=== PATIENT | female | born 1945 | race Caucasian/White ===

== ENCOUNTER → 2017-05-06 10:03 | Outpatient (CLI) | payer MEDICARE, OTHER, SELFPAY ==
--- NOTE | 2017-05-06 10:09 | HPBI_ITS ---
MAMMOGRAPHY - BILATERAL SCREENING REASON FOR EXAM: Female, 71 years old. Routine annual screening examination. PERTINENT HISTORY: Non-contributory. History of bilateral stereotactic breast biopsies. TECHNIQUE: Digital bilateral breast noé (3D mammographic acquisition) in the CC and MLO projections. 2-D mediolateral oblique (MLO) and craniocaudad (CC) views of both breasts were obtained. CAD: Full Field Digital Mammography with Computer Added Detection was performed. COMPARISON: Comparison is made with prior outside examination dated December 07, 2015. FINDINGS: Breast Composition: There are scattered areas of fibroglandular density. There are no dominant masses or suspicious calcifications. Stable appearance of the several small nodular densities in the right breast. These may represent cysts. Correlation with ultrasound is recommended. No other significant abnormalities are identified. There has been no significant change since the prior study. HPBI/SCREENING MAMM (CAD), BILAT IMPRESSION: Stable bilateral screening mammogram. Correlation with ultrasound of the right breast is recommended for further evaluation. ASSESSMENT CATEGORY: BIRADS Category 0: Incomplete. Need additional imaging evaluation. A letter regarding these results will be sent to the patient by the facility within 30 days. Approximately 10% of breast cancers are not detected by mammography. A normal mammogram should not delay biopsy of a clinically suspicious abnormality. [id number] Electronically Signed: Everett Ingram MD at 12:41 EST Tel [phone], Service support ,
--- NOTE | 2017-05-06 10:16 | HPBD_ITS ---
STUDY: DUAL ENERGY X-RAY ABSORPTIOMETRY / DXA REASON FOR EXAM: Female, 71 years old. The patient is postmenopausal. Loss of height. TECHNIQUE: Bone Mineral Density (BMD) measurements of both forearms were obtained. The patient is status post bilateral hip replacement and lumbar fusion. COMPARISON: None. FINDINGS: Right Forearm: g/cm2 (1.025) / T-score (1.5) / Z-score (3.5) Left Forearm: g/cm2 (0.969) / T-score (0.9) / Z-score (2.9) HPBD/Dexa Bone Density/Append Skel IMPRESSION: The patient is considered normal as outlined below according to World Tip Organization (WHO) criteria with a low fracture risk. Reference Information: The T-score is the number of standard deviations above or below the standard which is normal for young adults at their peak bone mineral density. The World Health Organization (WHO) interprets the T-scores as follows: Above -1 Normal bone density Between -1 and -2.5 Osteopenia Equal to / or below -2.5 Osteoporosis As a practical clinical guideline, osteopenia may be graded as follows: Mild -1 through -1.5 Moderate -1.6 through -2.0 Severe -2.1 through -2.4 The Z-score is the number of standard deviations above or below age-matched controls. A Z-score of less than -1.5 would be considered abnormal. References: 1. NIH Osteoporosis and Related Bone Diseases http://www.osteo.org 2. International Society for Clinical Densitometry http://www.iscd.org 3. National Osteoporosis Foundation http://www.nof.org Electronically Signed: Everett Ingram MD at 12:40 EST Tel [phone], Service support ,
== END ==
PROVIDERS: Family Provider Internal Medicine; PCP Internal Medicine; Visit Provider Internal Medicine
DX: Z12.31 Encounter for screening mammogram for malignant neoplasm of breast (principal); Z78.0 Asymptomatic menopausal state
CPT/HCPCS: 77063; 77067; 77080; 77081

== ENCOUNTER → 2017-05-12 12:20 | Outpatient (CLI) | payer MEDICARE, OTHER, SELFPAY ==
--- NOTE | 2017-05-12 12:24 | US_ITS ---
STUDY: ULTRASOUND BREAST - RIGHT REASON FOR EXAM: Female, 71 years old. Abnormal screening mammogram. TECHNIQUE: Axial and longitudinal images of the RIGHT breast were performed with a high resolution ultrasound transducer. COMPARISON: Comparison is made with prior mammogram dated May 06, 2017. FINDINGS: RIGHT Breast: The entire right breast was examined. Multiple cysts are seen. The largest measures 8 mm x 6 mm x 5 mm. This is at the 1:00 position in the breast at 5 cm from the nipple. US/Breast Limited Unilateral IMPRESSION: Multiple small cysts are seen in the right breast. Routine mammographic follow-up is recommended. ASSESSMENT CATEGORY: BIRADS Category 2: Benign. A letter regarding these results will be sent to the patient by the facility within 30 days. Electronically Signed: Everett Ingram MD at 15:22 EST Tel [phone], Service support ,
== END ==
PROVIDERS: Family Provider Internal Medicine; PCP Internal Medicine; Visit Provider Internal Medicine
DX: R92.8 Other abnormal and inconclusive findings on diagnostic imaging of breast (principal)
CPT/HCPCS: 76642

== ENCOUNTER → 2018-06-08 09:17 | Outpatient (CLI) | payer MEDICARE, OTHER, SELFPAY ==
--- NOTE | 2018-06-08 09:33 | CDU_ITS ---
Reason For Study: Bruit Rt. Velocities/BP Lt. Velocities/BP Prox CCA 112/21.1 cm/sec. Prox CCA 132/36.1 cm/sec. Mid CCA 103/19.3 cm/sec. Mid CCA 108/33.8 cm/sec. Dist CCA 103/24.6 cm/sec. Dist CCA 96.6/30.6 cm/sec. Prox ICA 97.3/23.5 cm/sec. Prox ICA 75/20.5 cm/sec. Mid ICA 70.9/27 cm/sec. Mid ICA 89.1/27.6 cm/sec. Dist ICA 72.1/22.9 cm/sec. Dist ICA 82.1/32.2 cm/sec. Rt. ICA/CCA = 0.94. Lt. ICA/CCA = 0.83. Prox ECA 141/18.9 cm/sec. Prox ECA 93.5/14.1 cm/sec. Rt. Vert. 44/15.7 cm/sec. Lt. Vert. 46.8/14.1 cm/sec. Right Extracranial There is intimal thickening but no significant atherosclerotic plaque noted in the right common carotid artery. There is heterogeneous, irregular atherosclerotic plaque noted in the right internal carotid artery. There is heterogeneous, irregular atherosclerotic plaque noted in the right external carotid artery. Antegrade flow is noted in the right vertebral artery. Left Extracranial There is intimal thickening but no significant atherosclerotic plaque noted in the left common carotid artery. There is intimal thickening but no significant atherosclerotic plaque noted in the left internal carotid artery. There is intimal thickening but no significant atherosclerotic plaque noted in the left external carotid artery. Antegrade flow is noted in the left vertebral artery. Procedure Carotid Duplex 46001. Exam performed in department. Interpretation Summary Mild (<50%) stenosis right extracranial internal carotid. Mild (<50%) stenosis left extracranial internal carotid. Flow within the vertebral arteries is antegrade bilaterally. Ordering Physician: Debora Fernando Referring Physician: Debora Fernando Performed By: Roxane Knutson RVT, RDCS and Student
== END ==
PROVIDERS: Family Provider Internal Medicine; PCP Internal Medicine; Referring Provider Internal Medicine; Visit Provider Internal Medicine
DX: R09.89 Other specified symptoms and signs involving the circulatory and respiratory systems (principal)
CPT/HCPCS: 93880

== ENCOUNTER → 2018-07-06 09:47 | Outpatient (CLI) | payer MEDICARE, OTHER, SELFPAY ==
[2017-09-19 10:11] VITALS: BMI 38.8
--- NOTE | 2018-07-06 09:49 | BI_ITS ---
MAMMOGRAPHY - BILATERAL SCREENING REASON FOR EXAM: Female, 72 years old. Routine annual screening examination. PERTINENT HISTORY: History of multiple cysts. Remote bilateral stereotactic biopsies. TECHNIQUE: Digital bilateral breast noé (3D mammographic acquisition) in the CC and MLO projections. 2-D mediolateral oblique (MLO) and craniocaudad (CC) views of both breasts were obtained. CAD: Full Field Digital Mammography with Computer Added Detection was performed. COMPARISON: Comparison is made with prior study dated May 06, 2017. FINDINGS: Breast Composition: There are scattered areas of fibroglandular density. Once again, there are multiple small nodular densities scattered throughout the right breast. These have been demonstrated to be cysts on prior ultrasound. Several small well-defined nodular densities are also seen in the left breast. These most likely represent small cysts as well. No other significant abnormalities are identified. There has been no significant change since the prior study. BI/SCREENING MAMM (CAD), BILAT IMPRESSION: Stable bilateral screening mammogram. Yearly follow-up mammogram recommended. (A) ASSESSMENT CATEGORY: BIRADS Category 2: Benign. A letter regarding these results will be sent to the patient by the facility within 30 days. Approximately 10% of breast cancers are not detected by mammography. A normal mammogram should not delay biopsy of a clinically suspicious abnormality. [id number] Electronically Signed: Everett Ingram, at 11:14 EDT , Service support ,
== END ==
PROVIDERS: Family Provider Internal Medicine; PCP Internal Medicine; Referring Provider Internal Medicine; Visit Provider Internal Medicine
DX: Z12.31 Encounter for screening mammogram for malignant neoplasm of breast (principal)
CPT/HCPCS: 77063; 77067

== ENCOUNTER → 2019-12-08 06:17 | Outpatient (CLI) | payer MEDICARE, OTHER, SELFPAY ==
[2019-11-23 11:29] VITALS: BMI 48.7
--- NOTE | 2019-12-08 06:18 | ECHOD_ITS ---
Reason For Study: MURMUR Procedure This was a 2D Doppler, Color Flow transthoracic echocardiogram. Exam performed in department. Left Ventricle Normal LV size. Left ventricular systolic function is normal. The estimated ejection fraction is 60 %. Stage 1 diastolic dysfunction. No regional wall motion abnormalities noted. Right Ventricle Normal RV size. Normal systolic function. Atria Normal left atrium. Mitral Valve There is mild to moderate mitral annular calcification. Tricuspid Valve Normal tricuspid valve. Aortic Valve Trisinus/trileaflet aortic valve. Mild focal aortic valve calcification. Pulmonic Valve Normal pulmonic valve. Great Vessels Normal aortic root. The pulmonary artery is normal size. Normal inferior vena cava. Pericardium/Pleural No pericardial effusion. MMode/2D Measurements & Calculations LVIDd: 4.3 cm IVSd: 1.0 cm LVOT diam: 2.0 cm LVIDs: 2.4 cm LVPWd: 1.1 cm LVOT area: 3.0 cm2 RVDd: 2.9 cm FS: 42.7 % Ao root diam: 3.1 cm LAV(MOD-bp): 48.7 ml LVAd ap4: 22.1 cm2 LAV(MOD-bp) Indexed: 22.3 ml/m2 EDV(MOD-sp4): 56.9 ml LAV(MOD-sp2): 54.1 ml EDV(sp4-el): 58.1 ml LAV(MOD-sp4): 42.6 ml LVAs ap4: 11.1 cm2 ESV(MOD-sp4): 18.7 ml ESV(sp4-el): 17.4 ml EF(MOD-sp4): 67.1 % EF(sp4-el): 70.0 % SV(MOD-sp4): 38.2 ml SV(sp4-el): 40.7 ml LA A4 area: 17.1 cm2 LA dimension(2D): 4.1 cm RA A4 area: 12.3 cm2 Time Measurements MV dec time: 0.29 sec Doppler Measurements & Calculations MV E max jose martin: 78.2 cm/sec Lat Peak E' Jose Martin: 5.2 cm/sec Med Peak E' Jose Martin: 8.3 cm/sec MV A max jose martin: 108.8 cm/sec E/E' lat: 15.1 E/E' med: 9.4 MV E/A: 0.72 Ao V2 max: 257.5 cm/sec LV V1 max: 112.2 cm/sec SV(LVOT): 82.9 ml Ao max P.5 mmHg LV V1 max P.0 mmHg Ao V2 mean: 181.0 cm/sec LV V1 mean P.3 mmHg Ao mean P.5 mmHg LV V1 mean: 69.8 cm/sec Ao V2 VTI: 53.2 cm LV V1 VTI: 27.5 cm MADAN(I,D): 1.6 cm2 MADAN(V,D): 1.3 cm2 PA V2 max: 95.1 cm/sec Interpretation Summary Normal LV size. Left ventricular systolic function is normal. The estimated ejection fraction is 60 %. Stage 1 diastolic dysfunction. Ordering Physician: Ulises Rees Referring Physician: ROBERT HUDSON Performed By: Caty Fernandes RDCS
== END ==
PROVIDERS: PCP Internal Medicine; Referring Provider Internal Medicine Cardiovascular Disease; Visit Provider Internal Medicine Cardiovascular Disease
DX: I25.10 Atherosclerotic heart disease of native coronary artery without angina pectoris (principal); R01.1 Cardiac murmur, unspecified
CPT/HCPCS: 93306

== ENCOUNTER → 2020-07-11 10:21 | Outpatient (CLI) | payer MEDICARE, OTHER, SELFPAY ==
[2019-11-23 11:29] VITALS: BMI 48.7
--- NOTE | 2020-07-11 10:27 | BI_ITS ---
MAMMOGRAPHY - BILATERAL SCREENING 3-D TOMOSYNTHESIS REASON FOR EXAM: Female, 74 years old. SCREENING PERTINENT HISTORY: No significant family history. History of cysts and previous biopsies TECHNIQUE: 2-D mammograms and 3-D Tomosynthesis of the breast (s) were performed. CAD was performed. COMPARISON: 2019 FINDINGS: The breast composition is composed of scattered fibroglandular density. Scattered benign calcifications are seen. No dense spiculated masses or suspicious microcalcifications are identified. No architectural distortion is identified. There is no skin thickening or retraction. Stable well-defined subcentimeter nodules in both breasts. There has been no significant change since the prior study. BI/SCRN MAMM (CAD)W/WILLIE BILAT IMPRESSION: No mammographic signs of malignancy. Routine yearly mammograms recommended. ASSESSMENT CATEGORY: BIRADS Category 2: Benign. A letter regarding these results will be sent to the patient by the facility within 30 days. FOLLOW UP RECOMMENDATION: Yearly follow up mammogram recommended. (A) Approximately 10% of breast cancers are not detected by mammography. A normal mammogram should not delay biopsy of a clinically suspicious abnormality. Electronically Signed: Shan Mayfield MD at 11:24 EDT , Service support ,
--- NOTE | 2020-07-11 10:53 | BD_ITS ---
STUDY: DUAL ENERGY X-RAY ABSORPTIOMETRY / DXA REASON FOR EXAM: Female, 74 years old. [id number]. Patient is postmenopausal. Loss of height. TECHNIQUE: Bone Mineral Density (BMD) measurements of both forearms were obtained. COMPARISON: Comparison is made with prior study dated 05/06/2017. FINDINGS: Right Forearm: g/cm2 (0.988) / T-score (1.1) / Z-score (3.4) Left Forearm: g/cm2 (0.946) / T-score (0.7) / Z-score (2.9) BD/Dexa Bone Density/Append Skel IMPRESSION: The patient is considered normal as outlined below according to World Tip Organization (WHO) criteria with a low fracture risk. There has been worsening of bone density since the previous examination. Reference Information: The T-score is the number of standard deviations above or below the standard which is normal for young adults at their peak bone mineral density. The World Health Organization (WHO) interprets the T-scores as follows: Above -1 Normal bone density Between -1 and -2.5 Osteopenia Equal to / or below -2.5 Osteoporosis As a practical clinical guideline, osteopenia may be graded as follows: Mild -1 through -1.5 Moderate -1.6 through -2.0 Severe -2.1 through -2.4 The Z-score is the number of standard deviations above or below age-matched controls. A Z-score of less than -1.5 would be considered abnormal. References: 1. NIH Osteoporosis and Related Bone Diseases www osteo.org 2. International Society for Clinical Densitometry www iscd.org 3. National Osteoporosis Foundation www nof.org Electronically Signed: Everett Ingram MD at 12:31 EDT , Service support ,
== END ==
PROVIDERS: PCP Internal Medicine; Referring Provider Internal Medicine; Visit Provider Internal Medicine
DX: Z78.0 Asymptomatic menopausal state (principal); Z12.31 Encounter for screening mammogram for malignant neoplasm of breast
CPT/HCPCS: 77063; 77067; 77081

== ENCOUNTER 2021-07-18 09:49 | Outpatient (CLI) | payer MEDICARE, OTHER, SELFPAY ==
--- NOTE | 2021-07-18 09:52 | ART_ITS ---
Reason For Study: CLAUDICATION Procedure A bilateral lower extremity continuous wave Doppler with analog waveform analysis,segmental pressures,and ankle brachial indexes without exercise. Left Segmental Pressures Left brachial= 168mmHg. Left calf = >255mmHg. Left posterior tibial artery = >255mmHg. Left dorsalis pedis artery = 150mmHg. Left digit = 110 mmHg. The left posterior tibial artery waveforms are triphasic. The left dorsalis pedis waveforms are triphasic. Right Segmental Pressures Right brachial= 164mmHg. Right posterior tibial artery = 185mmHg. Right dorsalis pedis artery = >255mmHg. Right digit = 134 mmHg. The right posterior tibial artery waveforms are triphasic. The right dorsalis pedis waveforms are triphasic. Indices The right resting ankle brachial index is 1.10. The right ankle brachial index by the posterior tibial artery is 1.10. The right ankle brachial index by the dorsalis pedis is -NC-. The right digital-brachial index is 0.80. The left resting ankle brachial index is 0.89. The left ankle brachial index by the posterior tibial artery is -NC-. The left ankle brachial index by the dorsalis pedis is 0.89. The left digital-brachial index is 0.65. VL/Lower Ext Art Exam w/o Exercis Interpretation Summary Normal right lower extremity PT ankle-brachial index of 1.1 with noncalculable right DP index due to noncompressibility. Normal triphasic Doppler waveforms for the right posterior tibial and dorsalis pedis Right digital brachial index is normal but the volume pulse recordings are carlitos edly diminished consistent with small vessel disease Noncompressible left posterior tibialis making the ankle-brachial index not donta culable Moderately severe occlusive disease based upon the left DP index of 0.89. It is of note that the left posterior tibial and dorsalis pedis Doppler waveforms are both triphasic s uggesting a more mild amount of disease. The left digital brachial index is abnormal though at 0.65 suggesting small ves annie disease Ordering Physician: Efe Westfall Referring Physician: Debora Fernando Performed By: Ambreen Swain RVT, [facility]
== END 2021-07-18 23:59 | disposition home or self-care (01) ==
LOC: CVS 09:50
PROVIDERS: PCP Internal Medicine; Visit Provider Surgery
DX: R09.89 Other specified symptoms and signs involving the circulatory and respiratory systems (principal)
CPT/HCPCS: 93923

== ENCOUNTER 2021-07-27 13:00 | Outpatient (RCR) | payer MEDICARE, OTHER, SELFPAY ==
--- NOTE | 2021-07-04 14:16 | HP.PTEVAL_ITS ---
Patient's Visit Information DION NEGRETE is a 75 year old F referred to Physical Therapy by Dr. Debora Hudson DO with a diagnosis of RIGHT LE SCIATICA. Date of Evaluation: 07/04/21 Physical Therapist: Berenice Gama, PT, Cert MDT - Visit Plan Frequency: 2-3x /Week Duration: 4-6 Weeks Plan: GAIT TRAINING WITH WEIGHT APPROPRIATE WALKER AND/OR IN PARALLEL BARS FOR SAFETY. USE GAIT BELT. POSTURE CORRECTION/STRENGTHENING, INSTRUCTION IN APPROPRIATE BODY MECHANICS AND ACTIVITY MODIFICATIONS. DLS STARTING WITH A NEUTRAL SPINE PROGRESSING ROM TOLERATED. VICKIE LE ROM, STRETCHING AND STRENGTHENING. HEP INSTRUCTION. - Subjective Work/Leisure: RETIRED. Present symptoms: LOW BACK PAIN R > L. SHARP BURNING PAIN ALL THE WAY DOWN RIGHT LEG TO TOES. DENIES LLE SXS'. Present since: CHRONIC BUT Apr FELL ON RIGHT LEG AND ABOUT 2 WEEKS AFTER THE FALL THE PAIN STARTED VERY SERIOUSLY AGAIN. PRIOR TO THAT THE PAIN WAS MORE MANAGEABLE AND WOULD COME AND GO. Pain Scale: WORST 10/10, LEAST 1/10. Currently: 04/16. Commenced as a result of: FALL APR 2021 IN BEDROOM - FELL ONTO AN OAK STEP. Symptoms at onset: L LEG FROM KNEE DOWN HURT AND SWELLED UP. Worse: GETTING DRESSED, MOVING. Better: AM, SITTING. Disturbed sleep: NO. Previous history/Previous treatment: BACK SURGERY 2017 AT [facility]. PATIENT REPORTS SHE HAD A WHOLE YEAR AFTER THE BACK SURGERY WITHOUT PAIN BUT THEN THE PAIN STARTED RETURNING. ABHIJIT'S BEFORE THE BACK SURGERY. PT FOR BACK AFTER SURGERY BUT NONE SINCE. Treatment this episode: NO BACK TREATMENT PER PATIENT REPORT SINCE FALL IN APRIL. Coughing/sneezing/straining: NEGATIVE. Gait: WALKING WITH WALKER AND ROLLATOR IN HOME. DISTANCE LIMITED BY BACK AND R LEG PAIN. 3 STEPS WITH ONE HR INTO AND OUT OF HOUSE. PATIENT DOES STEPS WITH HR ON ONE SIDE AND HELP OF ON THE OTHER. HAS W/C AND USES IT FOR ANYTHING OTHER THAN SHORT DISTANCES. GETTING AROUND WITH A CANE BEFORE THE FALL. LIVES ON ONE LEVEL IN HOME. Difficulty initiating urination: PATIENT DENIES BOWEL INCONTINENCE. HAS BLADDER INCONTINENCE BUT NOT NEW SINCE THE FALL. Accidents: NO. Unexplained weight loss: NO. Imaging: NONE RECENT OF LOW BACK. REPORTS SHE DID HAVE RIGHT LE X-RAYS AFTER THE FALL AND THEY TOLD HER EVERYTHING IS OK. PMH/Recent major surgery: HEART DZ, HTN, AORTIC VALVE STENOSIS, TYPE II DM, L SHLD REPLACEMENT 2017, CORONARY ARTERY STENT PLACEMENT. R THR 2017. RIGHT FOOT ORIF. OTHER: RECENT EXAM BY DR. STATON FOR RIGHT NAIR HEMATOMA. HAS BEEN SITTING FOR ALMOST 3 MONTHS WITH LEG UP BECAUSE IT SWELLED SO MUCH. STATES THE SWELLING IS PRETTY MUCH GONE NOW. REPORTS DR. HUDSON GAVE HER MUSCLE RELAXER LAST FRIDAY AND FRIDAY MORNING HER MUSCLES FELT LIKE NOODLES AND COULD HARDLY STAND AT ALL. STATES SHE IS STILL FEELING WEAKER THAN NORMAL AND SHE RELATES IT TO THE MUSCLE RELAXERS WHICH SHE HAS STOPPED TAKING FRIDAY. OTHER: PATIENT REPORTS THAT SOMETIME AFTER THE FALL HER FINGER TIPS STARTED GOING NUMB AND THIS PT INSTRUCTED PATIENT TO NOTIFY DR. HUDSON. - Objective Sitting/Standing Posture: POOR. REDUCED LUMBAR LORDOSIS. FH. RSH'S. Active Correction of posture: WORSE AND ONLY ABLE TO PARTIALLY CORRECT. Other Observations: THIS PATIENT WAS BROUGHT BACK TO PT IN HER OWN W/C BY HER . PATIENT IS UE DEPENDENT TO TRANSFER FROM SIT TO STAND AT WALKER FROM W/C AND UE DEPENDENT ON WALKER TO BALANCE IN STANDING AND TO TAKE A FEW STEPS. INCREASED TRUNK FLEXION IN STANDING. Motor deficit: L LE: 5/5 WITH MMT'ING EXCEPT HIP 4/5. RIGHT LE TESTING IS PAIN LIMITED AND GROSSLY: HIP 3+/5, KNEE EXT 4-/5, KNEE FLEX 4/5, ANKLE 4/5. Sensory deficit: VICKIE LE LIGHT TOUCH SENSATION IS GROSSLY INTACT AND SYMMETRICAL. ROM deficit: TIGHT VICKIE GASTROC SOLEUS COMPLEX'S RIGHT > LEFT. VICKIE HIP FLEXOR AND HS TIGHTNESS BUT ABLE TO FULL Y EXTEND VICKIE KNEES IN SITTING. Dural Signs: NEGATIVE VICKIE LE'S. Lumbar mvmt loss: flex - MIN TO MOD. ext - MARIAM. R SG - MARIAM. L SG - MARIAM. PATIENT DENIES INCREASED PAIN WITH LUMBAR FLEXION TESTING BUT INCREASED PAIN INTO VICKIE SG AND ESPECIALLY EXTENSION. ONLY ABLE TO PARTIALLY CORRECT POSTURE. Core strength: POOR. TREATMENT: THER ACT - HOME INSTRUCTIONS FOR USE OF LUMBAR SUPPORT IN SITTING, WALKING PROGRAM IN HOME AND SEATED EX'S 2X10, 3 TIMES A DAY INCLUDING HEEL/TOE RAISES, LAQ'S AND HIP FLEXION. 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 - Balance/Special Test Scores Oswestry Low Back Score: 31 30 Second Chair Rise Test Seconds: 1 - Goals Goal 1:: DECREASE C/O LOW BACK AND RIGHT LE PAIN. Goal Time Frame: 4-6 Weeks Goal 2:: IMPROVE PERSONAL CARE, LIFTING, WALKING, STANDING, SOCIAL LIFE, TRAVEL AND HOMEMAKING FUNCTION/OSWESTRY SCORE Goal Time Frame: 6-8 Weeks Goal 3:: PATIENT WILL AMBULATE 75 FEET WITH WW WITH SUPERVISION X 1 TO IMPROVE ACTIVITY TOLERANCE Goal Time Frame: 6-8 Weeks Goal 4:: PATIENT WILL COMPLETE 6 STANDS IN 30 SECS TO DEMONSTRATE IMPROVED FUNCTIONAL STRENGTH Goal Time Frame: 6-8 Weeks Goal 5:: PATIENT WILL COMPLETE TUG IN < 30 SECS WITH LEAST ASSISTIVE DEVICE TO DEMONSTRATE IMPROVED GAIT STABILITY Goal Time Frame: 6-8 Weeks - Anticipated Interventions Patient/Client Instruction: Educate patient on: Condition, Plan of Care, Risk Factors, Benefits of Fitness Program For the Purpose of:: To improve self management Therapeutic Exercise to Include: Strength training, Body mechanics, Postural training, Flexibilty training, Gait and locomotor training, Neuromotor development, Dynamic Lumbar Stabilization For the Purpose of:: To decrease pain, To improve muscle performance and motor function, To increase tolerance to activity/condition/position, To improve ability of physical actions for home/community/work/leisure, To improve gait and locomotor functions Thank you for the opportunity to evaluate your patient. For Medicare and Medicare HMO plans, please review the plan of care and approve it. It will need to be FAXED BACK to us at [phone] for Medicare purposes. For Medicare only, by signing this I certify the plan of care. Please let me know if there are questions or concerns regarding this plan of care. Physician Signature: Date:
--- NOTE | 2021-07-27 15:34 | HP.PTREVAL_ITS ---
Dr. Debora Hudson, DO, It has been my pleasure to treat DION NEGRETE over the last 8 visits for RIGHT LE SCIATICA. Please see the progress note below for an update on the physical therapy plan of care! Subjective: PATIENT REPORTS HER BACK AND LEG PAIN IS NO BETTER AND NO WORSE SINCE STARTING PT. REPORTS HER STANDING AND WALKING IS NOT GETTING BETTER AND HER PAIN IS NOT GETTING BETTER. Friday07/23/21 PATIENT REPORTS SHE WENT TO THE ED IN [place] BECAUSE HER FINGER TIPS AND RIGHT UE WERE GETTING NUMB. SHE REPORTS THEY X-RAY'D HER NECK AND PRESCRIBED METHYL PREDNISOLONE 4 MG AND NAPROXEN 500 MG. THE ED ALSO REFERRED HER TO [facility] FOR A CONSULT ON HER NECK. SHE WAS DX'D WITH CERVICAL RADICULOPATHY. SHE REPORTS THEY TOLD HER SHE DID NOT HAVE ANY FX'S. Friday07/24/21 PATIENT REPORTS SHE WAS GETTING BACK INTO BED EARLY IN THE MORNING AND HER FOOT SLIPPED OFF THE STEP AND SHE FELL TO THE FLOOR. SHE REPORTS HER GRANDSON PICKED HER UP AND SHE WENT BACK TO BED. SHE REPORTS SHE DIDN'T HURT HERSELF THAT TIME OTHER THAN SOME BRUISES. SHE STARTED THE ED PRESCRIBED MEDICATIONS Friday. PATIENT REPORTS SHE POPPED HER LEFT THUMB OUT TRYING TO GET OUT OF THE CHAIR THIS MORNING. Objective/Function: PATIENT WAS SEEN TODAY FOR RE-ASSESSMENT OF PROGRESS TOWARD THE SET PT GOALS AND THE NEED FOR FURTHER PHYSICAL THERAPY VS READINESS FOR DISCHARGE. SHE ARRIVED TO PT IN A W/C AND WAS WHEELED BACK TO TREATMENT ROOM BY HER . UPON EXAM, THERE ARE NO SIGNIFICANT CHANGES SINCE INITIAL EVAL EXCEPT PATIENT UNABLE TO DEMO TRANSFERS AND GAIT. SHE AND HER DO HOWEVER REPORT SHE WALKED ABOUT 20 FEET WITH THE WALKER TO GET TO THE CAR TO GET HERE TODAY. PATIENT STRUGGLED A BIT TRYING TO RISE FROM SITTING FROM THE W/C TODAY AND THEN TOLD ME ABOUT HER THUMB. I INSTRUCTED HER TO STOP AND REFERRED HER BACK TO DR. HUDSON FOR FOLLOW UP ON HER SCIATICA DX AND HER NEW C/O'S OF L THUMB PAIN AND UE SX'S. HER LEFT HAND IS VERY BRUISED. SHE PLANS TO STOP AT [facility] ON HER WAY OUT TODAY TO SCHEDULE FOLLOW UP WITH DR. HUDSON. Plan Plan: HOLD PT PENDING PHYSICIAN RE-ASSESSMENT. PATIENT AND AGREEABLE. Balance/Gait/Functional tests - Balance/Special Test Scores Oswestry Low Back Score: 32 30 Second Chair Rise Test Seconds: 1 Goals Goal 1:: DECREASE C/O LOW BACK AND RIGHT LE PAIN. Goal Time Frame: 4-6 Weeks Goal Progress: Not Progressing Goal 2:: IMPROVE PERSONAL CARE, LIFTING, WALKING, STANDING, SOCIAL LIFE, TRAVEL AND HOMEMAKING FUNCTION/OSWESTRY SCORE Goal Time Frame: 6-8 Weeks Goal Progress: Not Progressing Goal 3:: PATIENT WILL AMBULATE 75 FEET WITH [facility] WITH SUPERVISION X 1 TO IMPROVE ACTIVITY TOLERANCE Goal Time Frame: 6-8 Weeks Goal Progress: Not Progressing Goal 4:: PATIENT WILL COMPLETE 6 STANDS IN 30 SECS TO DEMONSTRATE IMPROVED FUNCTIONAL STRENGTH Goal Time Frame: 6-8 Weeks Goal Progress: Not Progressing Goal 5:: PATIENT WILL COMPLETE TUG IN < 30 SECS WITH LEAST ASSISTIVE DEVICE TO DEMONSTRATE IMPROVED GAIT STABILITY Goal Time Frame: 6-8 Weeks Goal Progress: Not Progressing Anticipated Interventions Patient/Client Instruction: Educate patient on: Condition, Plan of Care, Risk Factors, Benefits of Fitness Program For the Purpose of:: To improve self management Therapeutic Exercise to Include: Strength training, Body mechanics, Postural t raining, Flexibilty training, Gait and locomotor training, Neuromotor development, Dynamic Lumbar Stabilization For the Purpose of:: To decrease pain, To improve muscle performance and motor function, To increase tolerance to activity/condition/position, To improve ability of physical actions for home/community/work/leisure, To improve gait and locomotor functions Please do not hesitate to contact me at [phone] by phone or if you have questions or concerns regarding this new plan of care! Sincerely, Berenice Gama, PT, Cert MDT
== END 2021-07-27 19:00 | disposition home or self-care (01) ==
LOC: PT 13:00
PROVIDERS: PCP Internal Medicine; Referring Provider Internal Medicine; Visit Provider Internal Medicine
DX: M54.31 Sciatica, right side (principal)
CPT/HCPCS: 97110; 97162; 97164; 97530

== ENCOUNTER → 2021-08-23 | Outpatient (CLI) | payer MEDICARE, OTHER, SELFPAY ==
--- NOTE | 2021-08-23 13:00 | MRI_ITS ---
EXAM: MR LUMBAR SPINE WITHOUT INTRAVENOUS CONTRAST CLINICAL INDICATION: LBP TECHNIQUE: Multiplanar and multisequence MR images of the lumbar spine without intravenous contrast. This report was created using [employer] report Mozy technology. COMPARISON: None. FINDINGS: VERTEBRAE: Prominent diffuse spondylosis. Vertebral body heights are preserved. Partial loss of the normal lumbar lordosis. No spondylolisthesis. Posterior laminectomy involves L3, L4 and L5. Interpedicular screws in place bilaterally at L3, L4 and L5. SPINAL CORD: Conus medullaris and cauda equina are normal. SOFT TISSUES: Unremarkable. DISCS/SPINAL CANAL/NEURAL FORAMINA: L1-L2: Disc space narrowing, disc bulging, facet arthropathy and posterior ligamentous redundancy results in mild spinal and moderate neural foraminal narrowing. L2-L3: Prominent disc space narrowing and vertebral body hypertrophy and facet arthropathy results in severe left and moderate right spinal stenosis. Minimal narrowing of the spinal canal. L3-L4: Disc space narrowing and mild posterior disc bulging, facet arthropathy and ligamentous redundancy results in minimal impression on the thecal sac and moderate right and mild left neural foraminal narrowing. L4-L5: Significant loss in intervertebral disc space. Minimal disc bulging without impingement on the spinal canal. Moderate narrowing of the neural foramina related to vertebral body hypertrophy. L5-S1: Mild disc space narrowing. Left central disc protrusion causes narrowing of the left lateral recess and left neural foramen and moderate narrowing of the right neural foramen. No significant spinal stenosis. MRI/Spine Lumbar (Routine) IMPRESSION: Prominent diffuse spondylosis and postoperative changes with spinal neural foraminal narrowing as described. Electronically Signed: Edmundo Gregory MD at 16:26 EDT ,
== END | disposition home or self-care (01) ==
PROVIDERS: PCP Internal Medicine; Visit Provider Internal Medicine
DX: M54.31 Sciatica, right side (principal)
CPT/HCPCS: 72148

== ENCOUNTER → 2021-11-05 | Outpatient (CLI) | payer MEDICARE, OTHER, SELFPAY ==
--- NOTE | 2021-11-05 07:13 | ECHOD_ITS ---
Reason For Study: Murmur Procedure This was a 2D Doppler, Color Flow transthoracic echocardiogram. Exam performed in department. Left Ventricle Normal LV size. Left ventricular systolic function is normal. The estimated ejection fraction is 65 %. No regional wall motion abnormalities noted. Right Ventricle Normal RV size. Normal systolic function. Atria Normal left atrium. Normal right atrium. Mitral Valve Normal mitral valve. Tricuspid Valve Normal tricuspid valve. Mild (1+) tricuspid valve insufficiency. Pulmonary artery systolic pressure is 27 mmHg. Aortic Valve Trisinus/trileaflet aortic valve. Mild focal aortic valve calcification. Pulmonic Valve Normal pulmonic valve. Mild (1+) pulmonic valve insufficiency. Great Vessels Normal aortic root. The pulmonary artery is normal size. Normal inferior vena cava. Pericardium/Pleural No pericardial effusion. MMode/2D Measurements & Calculations LVIDd: 4.4 cm IVSd: 1.1 cm LVOT diam: 2.0 cm LVIDs: 2.8 cm LVPWd: 1.2 cm LVOT area: 3.0 cm2 RVDd: 2.4 cm FS: 37.0 % Ao root diam: 3.1 cm LAV(MOD-bp): 38.7 ml LVAd ap4: 18.2 cm2 LAV(MOD-bp) Indexed: 17.1 ml/m2 LVLd ap4: 6.8 cm LAV(MOD-sp2): 35.8 ml EDV(MOD-sp4): 40.2 ml LAV(MOD-sp4): 40.2 ml EDV(sp4-el): 41.2 ml LVAs ap4: 9.1 cm2 LVLs ap4: 5.3 cm ESV(MOD-sp4): 13.2 ml ESV(sp4-el): 13.2 ml EF(MOD-sp4): 67.1 % EF(sp4-el): 68.0 % SV(MOD-sp4): 27.0 ml SV(sp4-el): 28.0 ml LA A4 area: 16.9 cm2 LA dimension(2D): 4.1 cm RA A4 area: 10.1 cm2 Doppler Measurements & Calculations MV E max jose martin: 108.0 cm/sec Lat Peak E' Jose Martin: 5.4 cm/sec Med Peak E' Jose Martin: 6.6 cm/sec MV A max jose martin: 130.2 cm/sec E/E' lat: 19.9 E/E' med: 16.3 MV E/A: 0.83 Ao V2 max: 236.7 cm/sec LV V1 max: 135.6 cm/sec SV(LVOT): 72.8 ml Ao max P.4 mmHg LV V1 max P.4 mmHg Ao V2 mean: 164.5 cm/sec LV V1 mean P.1 mmHg Ao mean P.9 mmHg LV V1 mean: 96.1 cm/sec Ao V2 VTI: 40.9 cm LV V1 VTI: 23.9 cm MADAN(I,D): 1.8 cm2 MADAN(V,D): 1.7 cm2 PA V2 max: 92.8 cm/sec TR max jose martin: 240.9 cm/sec TR max P.2 mmHg ECHO/Echo Complete Interpretation Summary Normal LV size. Left ventricular systolic function is normal. The estimated ejection fraction is 65 %. Pulmonary artery systolic pressure is 27 mmHg. Mild focal aortic valve calcification. Ordering Physician: Ulises Rees Referring Physician: Debora Fernando Performed By: Roxane Knutson, RDCHRISTINA, RVT
--- NOTE | 2021-11-05 19:35 | STRESSREP ---
Stress Test Report Pharmacologic myocardial perfusion stress test. 76-year-old lady with a history of coronary disease preop cardiac evaluation. Stress protocol: Resting EKG demonstrates normal sinus rhythm with a rate of 90 bpm resting blood pressure is 150/82 mmHg. 0.4 mg of regadenoson was infused per usual protocol followed by Intravenous saline flush injection continuous EKG monitoring was performed. The maximum heart rate was 96 bpm which was 66% of max impacted heart rate. At rest there were no ST or T wave changes noted to suggest abnormal flow reserve and at peak infusion nonspecific ST changes were noted with did not meet the criteria for ischemia. Myocardial perfusion protocol. 15.0 mCi of technetium 99m sestamibi was injected at rest. 0.4 mg of regadenoson was infused per usual protocol. At peak infusion 45.0 mCi of technetium 99m sestamibi was injected stress images were obtained stress and rest images were reconstructed in comparing the short axis vertical long horizontal long axis. Gated images were also obtained. Perfusion SPECT analysis: Review of the stress images demonstrate normal uptake of tracer noted in all areas of the myocardium. The resting images similar demonstrate normal uptake of tracer noted in all areas of the myocardium. No areas of reversibility are noted suggest ischemia and no previous infarct is noted. Gated SPECT analysis: The gated ejection fraction is 55+ percent. Conclusion: Normal pharmacologic myocardial perfusion stress test. Preserved ejection fraction.
== END | disposition home or self-care (01) ==
PROVIDERS: PCP Internal Medicine; Referring Provider Internal Medicine Cardiovascular Disease; Visit Provider Internal Medicine Cardiovascular Disease
DX: R60.0 Localized edema (principal); Z95.5 Presence of coronary angioplasty implant and graft
CPT/HCPCS: 78452; 93017; 93306; A9500; A4216; J2785

== ENCOUNTER → 2022-08-15 | Outpatient (CLI) | payer MEDICARE, OTHER, SELFPAY ==
--- NOTE | 2022-08-15 12:19 | BI_ITS ---
MAMMOGRAPHY - BILATERAL SCREENING REASON FOR EXAM: Female, 76 years old. Routine annual screening examination. PERTINENT HISTORY: Non-contributory. History of remote bilateral stereotactic breast biopsy. TECHNIQUE: Digital bilateral breast willie (3D mammographic acquisition) in the CC and MLO projections. 2-D mediolateral oblique (MLO) and craniocaudad (CC) views of both breasts were obtained. CAD: Full Field Digital Mammography with Computer Added Detection was performed. COMPARISON: Comparison is made with prior study July 11, 2020 and July 06, 2018. FINDINGS: Breast Composition: There are scattered areas of fibroglandular density. There are no dominant masses or suspicious calcifications. Once again, there are several small well-defined nodular densities seen in the breasts. Prior sonogram of the right breast dated May 12, 2017 demonstrated multiple small cysts. No other significant abnormalities are identified. There has been no significant change since the prior study. BI/SCRN MAMM (CAD)W/WILLIE BILAT IMPRESSION: Stable bilateral screening mammogram. Yearly follow-up mammogram recommended. (A) ASSESSMENT CATEGORY: BIRADS Category 2: Benign. A letter regarding these results will be sent to the patient by the facility within 30 days. Approximately 10% of breast cancers are not detected by mammography. A normal mammogram should not delay biopsy of a clinically suspicious abnormality. [id number] Electronically Signed: Everett Ingram MD at 14:17 EDT ,
--- NOTE | 2022-08-15 12:24 | BD_ITS ---
STUDY: DUAL ENERGY X-RAY ABSORPTIOMETRY / DXA REASON FOR EXAM: Female, 76 years old. [id number] TECHNIQUE: Bone Mineral Density (BMD) measurements of both forearms were obtained. COMPARISON: Comparison is made with prior examination July 11, 2020. FINDINGS: Right Forearm: g/cm2 (0.583) / T-score (0.1) / Z-score (2.7) Left Forearm: g/cm2 (0.598) / T-score (0.3) / Z-score (3.0) BD/Dexa Bone Density Study IMPRESSION: The patient is considered normal as outlined below according to World Tip Organization (WHO) criteria with a low fracture risk. There has been worsening of bone density since the previous examination. Reference Information: The T-score is the number of standard deviations above or below the standard which is normal for young adults at their peak bone mineral density. The World Health Organization (WHO) interprets the T-scores as follows: Above -1 Normal bone density Between -1 and -2.5 Osteopenia Equal to / or below -2.5 Osteoporosis As a practical clinical guideline, osteopenia may be graded as follows: Mild -1 through -1.5 Moderate -1.6 through -2.0 Severe -2.1 through -2.4 The Z-score is the number of standard deviations above or below age-matched controls. A Z-score of less than -1.5 would be considered abnormal. References: 1. NIH Osteoporosis and Related Bone Diseases www osteo.org 2. International Society for Clinical Densitometry www iscd.org 3. National Osteoporosis Foundation www nof.org Electronically Signed: Everett Ingram MD at 11:00 EDT ,
== END | disposition home or self-care (01) ==
LOC: OPBD 12:16
PROVIDERS: PCP Internal Medicine; Referring Provider Internal Medicine; Visit Provider Internal Medicine
DX: Z12.31 Encounter for screening mammogram for malignant neoplasm of breast (principal); Z78.0 Asymptomatic menopausal state
CPT/HCPCS: 77063; 77067; 77080

== ENCOUNTER → 2023-06-18 | Outpatient (CLI) | payer MEDICARE, OTHER, SELFPAY ==
--- NOTE | 2023-06-18 12:24 | CDU_ITS ---
Reason For Study: Bilateral Carotid Stenosis Rt. Velocities/BP Lt. Velocities/BP Prox CCA 58.9/16.3 cm/sec. Prox CCA 96.1/30.3 cm/sec. Mid CCA 78.7/20.1 cm/sec. Mid CCA 101.6/30.3 cm/sec. Dist CCA 65.5/18.2 cm/sec. Dist CCA 83.1/29.2 cm/sec. Prox ICA 64.8/18.5 cm/sec. Prox ICA 65.5/17.1 cm/sec. Mid ICA 70.5/22.7 cm/sec. Mid ICA 64.4/18.2 cm/sec. Dist ICA 54.4/19.5 cm/sec. Dist ICA 69.9/27.0 cm/sec. Rt. ICA/CCA = 0.9. Lt. ICA/CCA = 0.7. Prox ECA 90.0/15.4 cm/sec. Prox ECA 128.6/45.2 cm/sec. Rt. Vert. 29.6/5.4 cm/sec. Lt. Vert. 45.0/15.4 cm/sec. Right Extracranial There is intimal thickening but no significant atherosclerotic plaque noted in the right common carotid artery. There is intimal thickening but no significant atherosclerotic plaque noted in the right internal carotid artery. There is heterogeneous, irregular atherosclerotic plaque noted in the right external carotid artery. Antegrade flow is noted in the right vertebral artery. Left Extracranial There is intimal thickening but no significant atherosclerotic plaque noted in the left common carotid artery. There is heterogeneous, irregular atherosclerotic plaque noted in the left internal carotid artery. There is heterogeneous, irregular atherosclerotic plaque noted in the left external carotid artery. Antegrade flow is noted in the left vertebral artery. Procedure Carotid Duplex [id number]. This is a Carotid Duplex examination using B-mode, color flow and specral Doppler. The exam was diagnostic. Exam performed in department. VL/Carotid Duplex Ultrasound Interpretation Summary Normal right extracranial internal carotid. Mild (<50%) stenosis left extracranial internal carotid. Patent and antegrade vertebrals bilaterally. Ordering Physician: Debora Fernando Referring Physician: Debora Fernando Performed By: Luther Nur RVT
== END | disposition home or self-care (01) ==
LOC: CVS 12:23
PROVIDERS: PCP Internal Medicine; Referring Provider Internal Medicine; Visit Provider Internal Medicine
DX: I65.23 Occlusion and stenosis of bilateral carotid arteries (principal)
CPT/HCPCS: 93880

== ENCOUNTER → 2024-04-12 | Outpatient (CLI) | payer MEDICARE, OTHER, SELFPAY ==
--- NOTE | 2024-04-12 12:48 | BI_ITS ---
MAMMOGRAPHY - BILATERAL SCREENING REASON FOR EXAM: Female, 78 years old. Routine annual screening examination. PERTINENT HISTORY: Non-contributory. Remote left excisional breast biopsies. TECHNIQUE: Digital bilateral breast willie (3D mammographic acquisition) in the CC and MLO projections. 2-D mediolateral oblique (MLO) and craniocaudad (CC) views of both breasts were obtained. CAD: Full Field Digital Mammography with Computer Added Detection was performed. COMPARISON: Comparison is made with prior study dated August 15, 2022 and July 11, 2020. FINDINGS: Breast Composition: There are scattered areas of fibroglandular density. There are no dominant masses or suspicious calcifications. Once again, stable small bilateral well-defined nodular densities in both breasts. Prior sonogram demonstrated these to represent cysts. No other significant abnormalities are identified. There has been no significant change since the prior study. BI/SCRN MAMM (CAD)W/WILLIE BILAT IMPRESSION: Stable bilateral screening mammogram. Yearly follow-up mammogram recommended. (A) ASSESSMENT CATEGORY: BIRADS Category 2: Benign. A letter regarding these results will be sent to the patient by the facility within 30 days. Approximately 10% of breast cancers are not detected by mammography. A normal mammogram should not delay biopsy of a clinically suspicious abnormality. [id number] Electronically Signed: Everett Ingram MD at 10:24 EST ,
== END | disposition home or self-care (01) ==
LOC: OPBI 12:45
PROVIDERS: PCP Internal Medicine; Referring Provider Internal Medicine; Visit Provider Internal Medicine
DX: Z12.31 Encounter for screening mammogram for malignant neoplasm of breast (principal)
CPT/HCPCS: 77063; 77067

== ENCOUNTER → 2024-10-13 | Outpatient (CLI) | payer MEDICARE, OTHER, SELFPAY ==
--- NOTE | 2024-10-13 10:37 | BD_ITS ---
PROCEDURE: DEXA BONE DENSITY/APPEND SKEL 10/13/2024 REASON FOR EXAM: F, age 78 y/o . Postmenopausal. TECHNIQUE: DEXA BONE DENSITY/APPEND SKEL COMPARISON: Prior study dated August 15, 2022. FINDINGS: BMD and T-SCORES Left 1/3 radius: 0.573 g/cm2, T-score -0.1 Change from prior: Loss of 1.1%. Right 1/3 radius: 0.564 g/cm2, T-score -0.3 Change from prior: Loss of 3%. The World Health Organization has defined the following categories based on bone density: Normal bone density: T-score equal to or greater than -1.0 Osteopenia: T-score between -1.0 and -2.5 Osteoporosis: T-score equal to or less than -2.5 The patient does meet the pharmacological treatment recommendations for prevention of osteoporosis. BD/Dexa Bone Density/Append Skel IMPRESSION: NORMAL T-SCORES. Recommend follow-up as clinically warranted. Reading Location: [place] [id number]
== END | disposition home or self-care (01) ==
LOC: OPBD 10:36
PROVIDERS: PCP Internal Medicine; Referring Provider Internal Medicine; Visit Provider Internal Medicine
DX: Z78.0 Asymptomatic menopausal state (principal)
CPT/HCPCS: 77081

== ENCOUNTER → 2025-01-11 | Outpatient (CLI) | payer MEDICARE, OTHER, SELFPAY ==
[2025-01-11 18:34] LABS: Vitamin B12 447 pg/mL (180-914)
[2025-01-11 19:24] LABS: FOLATES,SERUM (FOLIC ACID) 20.90 ng/mL (4.60-34.80)
== END | disposition home or self-care (01) ==
LOC: MTLAB 14:37
PROVIDERS: PCP Internal Medicine; Referring Provider Internal Medicine; Visit Provider Internal Medicine
DX: E53.8 Deficiency of other specified B group vitamins (principal)
CPT/HCPCS: 36415; 82607; 82746